=== PATIENT | female | born 1985 | race Caucasian/White ===

== ENCOUNTER 2018-10-23 08:22 | Day surgery (SDC) | payer OTHER ==
[~2018-10-23] VITALS: Ht 160 cm; Wt 78.7 kg
[2018-10-24 08:11] VITALS: BP 101/71
== END 2018-10-24 13:41 | disposition home or self-care (01) ==
LOC: ED 09:20 → SDC 09:20 → UNDOADMIN 11:20 → EDIP 11:20 → 4NOR 12:22 → EDSTATUS 17:05 → DCLOUNGE 10-24 13:29 → 4NOR 10-24 13:29 → SDC 10-24 13:41 → UNDODISIN 10-24 13:41
PROVIDERS: ATTEND Emergency Medicine
DX: K80.12 Calculus of gallbladder with acute and chronic cholecystitis without obstruction (principal); N83.201 Unspecified ovarian cyst, right side; Z72.89 Other problems related to lifestyle; Z79.899 Other long term (current) drug therapy
CPT/HCPCS: 36415; 47562; 71045; 74177; 80053; 80307; 81001; 83690; 84484; 84703; 85025; 87086; 88304; C1729; J0330; J0690; J1100; J1170; J1885; J2175; J2250; J2405; J2704; J2710; J3010; J3490; Q0162; Q9967; G0378